=== PATIENT | male | born 1980 | race Caucasian/White ===

== ENCOUNTER → 2017-09-09 | Outpatient (CLI) | payer BC ==
--- NOTE | 2017-09-09 10:26 | US ---
EXAMINATION TYPE: US thyroid st tissue head/neck DATE OF EXAM: 09/09/2017 COMPARISON: NONE CLINICAL HISTORY: R22.1 Localized swelling/mass/lump. Pt states palpable lump anterior neck just belo w jaw. Patient states these are new and showed up overnight. GLAND SIZE: Right Lobe: 5.2 x 1.6 x 2.5 cm Overall Parenchyma: homogenous Left Lobe: 4.5 x 1.4 x 1.8 cm Overall Parenchyma: homogeneous Isthmus Thickness: 0.3 cm Thyroid appeared wnl, in area of pt's palpable, there are 4 hypoechoic, vascular lesions largest ciro ures 1.7 x 1.4 x 1.4 cm. IMPRESSION: 1. Four hypoechoic submental lesions that given the history not these are new these are favored to be abnormally enlarged lymph nodes. These could be reactive and short-term follow-up in 4-6 weeks is re commended to reassess their size. If at that time these are stable or enlarged biopsy should be consi dered. Alternatively but less likely these could represent complicated thyroglossal duct cysts or epi dermoid cyst in this region. If there is concern for adenocarcinoma with adenopathy enhanced CT neck could performed. 2. Unremarkable thyroid gland.
== END | disposition home or self-care (01) ==
LOC: RADUSWWP 09:41
PROVIDERS: ATTEND Family Medicine
DX: E07.89 Other specified disorders of thyroid (principal)
CPT/HCPCS: 76536